=== PATIENT | female | born 1950 | race Caucasian/White ===

== ENCOUNTER → 2020-07-21 | Outpatient (CLI) | payer BC | LOC: SJCVCIMAG 06-09 09:02 | PROVIDERS: ATTEND Internal Medicine | DX: I08.2 Rheumatic disorders of both aortic and tricuspid valves (principal); R00.0 Tachycardia, unspecified; I49.3 Ventricular premature depolarization; I11.9 Hypertensive heart disease without heart failure; E78.5 Hyperlipidemia, unspecified; Z79.899 Other long term (current) drug therapy ==